=== PATIENT | female | born 1995 | race Caucasian/White ===

== ENCOUNTER 2018-01-03 17:23 | Observation (INO) | payer MEDICAID ==
[~2018-01-03] VITALS: Ht 170.2 cm; Wt 88.5 kg
[2018-01-03 17:40] VITALS: BP 130/78
== END 2018-01-03 21:45 | disposition home or self-care (01) ==
LOC: MLD 17:23
PROVIDERS: ADMIT Obstetrics & Gynecology; ATTEND Obstetrics & Gynecology
DX: O26.893 Other specified pregnancy related conditions, third trimester (principal); R10.9 Unspecified abdominal pain; Z3A.31 31 weeks gestation of pregnancy
CPT/HCPCS: 76805; G0378; Q0092; 81000

== ENCOUNTER 2018-02-20 10:30 | Inpatient (IN) | payer OTHER ==
[~2018-02-20] VITALS: Ht 167.6 cm; Wt 113.4 kg
[2018-02-20] MEDS ORDERED: OXYTOCIN 20 UNITS in LACTATED RINGERS 1,000 ML IV SCH (10:54)
[2018-02-20] MEDS ORDERED: LACTATED RINGERS 1,000 ML IV SCH (10:54)
[2018-02-20] MEDS ORDERED: OXYTOCIN 10 UNITS/ML VIAL IM SCH (10:55)
[2018-02-20] MEDS ORDERED: NALBUPHINE HYDROCHLORIDE 10 MG/ML VIAL IVP PRN (10:55)
[2018-02-20] MEDS ORDERED: PROMETHAZINE 25 MG/ML VIAL IVP PRN (10:55)
[2018-02-20] MEDS ORDERED: PREN-546 PO (10:59)
[2018-02-20 11:00] VITALS: BP 172/91
[2018-02-20] MEDS ORDERED: AMPICILLIN 2,000 MG in NACL 0.9% MINI-BAG PLUS 100 ML IV SCH (11:30)
[2018-02-20 11:58] LABS: BASOPHILS % (AUTO) 0.3 % (0.0-2.0); EOSINOPHILS # (AUTO) 0.1 K/uL (0-0.4); EOSINOPHILS % (AUTO) 0.7 % (0.0-4.0); HEMATOCRIT 40.4 % (36-48); HEMOGLOBIN 13.5 g/dL (12.0-16.0); LYMPHOCYTES # (AUTO) 2.9 K/uL (2.5-16.5); LYMPHOCYTES % (AUTO) 30.8 % (20.5-51.1); MEAN CORPUSCULAR HEMOGLOBIN 30 pg (27-31); MEAN CORPUSCULAR HGB CONC 34 g/dL (33-37); MEAN CORPUSCULAR VOLUME 88.7 fL (80-94); MONOCYTES # (AUTO) 0.7 K/uL (0.8-1.0); MONOCYTES % (AUTO) 7.6 % (1.7-9.3); NEUTROPHILS # (AUTO) 5.7 K/uL (1.8-7.7); NEUTROPHILS % (AUTO) 60.6 % (42.2-75.2); PLATELET COUNT (AUTO) 225 K/uL (140-450); RED BLOOD CELL COUNT(AUTO) 4.55 MIL/uL (4.20-5.40); RED CELL DISTRIBUTION WIDTH 14.4 % (11.6-13.7); WHITE BLOOD COUNT (AUTO) 9.5 K/uL (4.8-10.8)
[2018-02-20 11:59] LABS: APPEARANCE,URINE CLEAR (CLEAR); BILIRUBIN,URINE NEGATIVE (NEGATIVE); BLOOD, URINE 2+ (NEGATIVE); COLOR,URINE YELLOW (YELLOW); LEUKOCYTE ESTERASE ,URINE TRACE (NEGATIVE); NITRITE, URINE NEGATIVE (NEGATIVE); UGLUCOSE NEGATIVE (NEGATIVE)
[2018-02-20] MEDS ORDERED: BUPIVACAINE 0.125%/NS PREMIX 250 ML EPI SCH (12:00)
[2018-02-20 12:27] LABS: RBC,URINE 0-5 (RARE) /HPF (0-5)
[2018-02-20] MEDS ORDERED: MISOPROSTOL 25 MCG TAB ONE ×2 (13:14→17:49)
[2018-02-20] MEDS ORDERED: AMPICILLIN 2,000 MG VIAL ONE (14:16)
[2018-02-20 15:46] LABS: ANION GAP 14.8 (8-16); CARBON DIOXIDE 21.4 mmol/L (21-32); CREATININE 0.8 mg/dL (0.6-1.3); POTASSIUM 4.2 mmol/L (3.5-5.1)
[2018-02-20 15:51] LABS: ALBUMIN 1.9 g/dL (3.4-5.0); TOTAL BILIRUBIN 0.1 mg/dL (0.0-1.0)
[2018-02-20] MEDS ORDERED: AMPICILLIN 1,000 MG in NACL 0.9% MINI-BAG PLUS 50 ML IV SCH (16:00)
[2018-02-20] MEDS ORDERED: AMPICILLIN 1,000 MG VIAL ONE ×2 (18:07→22:33)
[2018-02-20] MEDS ORDERED: BUPIVACAINE 0.125%/NS PREMIX 250 ML ONE (20:24)
[2018-02-20] MEDS ORDERED: hydrALAZINE 20 MG/ML VIAL IM SCH ×2 (21:30→23:06)
[2018-02-20] MEDS ORDERED: MAG SULF 20 GM/H2O PREMIX DRIP 500 ML IV SCH ×2 (21:30)
[2018-02-20] MEDS ORDERED: MAG SULF 20 GM/H2O PREMIX DRIP 500 ML IV ONE (21:36)
[2018-02-20] MEDS ORDERED: hydrALAZINE 20 MG/ML VIAL ONE ×2 (21:36→23:10)
[2018-02-20] MEDS ORDERED: LABETALOL 100 MG TAB ONE (23:50)
[2018-02-21] MEDS ORDERED: LABETALOL 200 MG TAB PO SCH
[2018-02-21 00:03] VITALS: BP 184/102
[2018-02-21] MEDS ORDERED: OXYTOCIN 10 UNITS/ML VIAL ONE (01:17)
[2018-02-21] MEDS ORDERED: HYDROcodone/APAP 5/325 MG 1 TAB TAB PO PRN (04:05)
[2018-02-21] MEDS ORDERED: MEASLES, MUMPS, AND RUBELLA 1 VIAL SQVAC PRN (04:05)
[2018-02-21] MEDS ORDERED: TEMAZEPAM 15 MG CAP PO PRN (04:05)
[2018-02-21] MEDS ORDERED: oxyCODONE/APAP 5/325 MG 1 TAB TAB PO PRN (04:05)
[2018-02-21] MEDS ORDERED: IBUPROFEN 800 MG TAB PO PRN (04:05)
[2018-02-21] MEDS ORDERED: OXYTOCIN 10 UNITS/ML VIAL IM PRN (04:05)
[2018-02-21] MEDS ORDERED: METHYLERGONOVINE 0.2 MG/ML AMP IM PRN (04:05)
[2018-02-21] MEDS ORDERED: BENZOCAINE/MENTHOL 20%-0.5% 60 GM CAN TP PRN (04:05)
[2018-02-21] MEDS ORDERED: MAG SULF 20 GM/H2O PREMIX DRIP 500 ML IV ONE (05:55)
[2018-02-21] MEDS ORDERED: LABETALOL 200 MG TAB ONE (09:50)
[2018-02-21] MEDS: LABETALOL 200 MG TAB PO SCH ×2 (09:51→21:00)
--- NOTE | 2018-02-21 10:36 | NUR ---
PATIENT HAS BEEN SCREENED AND CATEGORIZED LOW NUTRITION RISK. PATIENT WILL BE SEEN WITHIN 7 DAYS OF ADMISSION. 02/27/[address]
[2018-02-21] MEDS ORDERED: DOCUSATE SOD/SENNA 50/8.6 MG 1 TAB PO SCH (21:00)
[2018-02-22 06:52] LABS: HEMATOCRIT 34.9 % (36-48); HEMOGLOBIN 11.5 g/dL (12.0-16.0)
[2018-02-22] MEDS ORDERED: IBUP-1842 PO (10:33)
[2018-02-22] MEDS: LABETALOL 200 MG TAB PO SCH (20:56)
== END 2018-02-23 09:41 | disposition home or self-care (01) | DRG 560 ==
LOC: UNDOADMOB 10:30 → MFCC 10:30 → UNDOADMOB 10:54 → MFCC 10:54 → OBSVTOIN 10:55 → MFCC 10:55 → INTOOBSV 02-21 02:02 → OBSVTOIN 02-21 02:02 → MFCC 02-21 16:20 → UNDODISIN 02-23 16:00
PROVIDERS: ADMIT Obstetrics & Gynecology; ATTEND Obstetrics & Gynecology
PROC: 10E0XZZ Delivery of Products of Conception, External Approach (ICD-10-PCS; principal; 2018-02-21)
PROC: 3E0R3BZ Introduction of Anesthetic Agent into Spinal Canal, Percutaneous Approach (ICD-10-PCS; 2018-02-21)
PROC: 00HU33Z Insertion of Infusion Device into Spinal Canal, Percutaneous Approach (ICD-10-PCS; 2018-02-21)
DX: O13.4 Gestational [pregnancy-induced] hypertension without significant proteinuria, complicating childbirth (principal); Z68.41 Body mass index [BMI] 40.0-44.9, adult; O99.214 Obesity complicating childbirth; E66.01 Morbid (severe) obesity due to excess calories; O14.94 Unspecified pre-eclampsia, complicating childbirth; O99.824 Streptococcus B carrier state complicating childbirth; Z3A.38 38 weeks gestation of pregnancy; Z37.0 Single live birth; Z28.21 Immunization not carried out because of patient refusal
CPT/HCPCS: 36415; 51702; 59070; 59409; 80053; 81001; 85018; 85025; 86592; 86886; 86900; 86901; 87086; G0378; J0290; J0360; J2590; J3475; J3490; J7120